=== PATIENT | female | born 1980 | race Caucasian/White ===

== ENCOUNTER 2020-04-06 09:51 | Emergency (ER) | payer OTHER ==
[~2020-04-06 09:51] MED LIST: BACTRIM DS TAB1 EACH PO
[2020-04-06] MEDS ORDERED: CELEXA20 MG PO (10:32)
[2020-04-06] MEDS ORDERED: VISTARIL50 MG PO (10:32)
== END 2020-04-06 10:42 | disposition home or self-care (01) ==
LOC: FER 09:51
DX: F41.1 Generalized anxiety disorder (principal); F17.210 Nicotine dependence, cigarettes, uncomplicated
CPT/HCPCS: 99283